=== PATIENT | female | born 1970 | race Caucasian/White ===

== ENCOUNTER 2020-10-05 18:39 | Emergency (ER) | payer OTHER ==
[~2020-10-05] VITALS: Ht 167.6 cm; Wt 85.3 kg
[2020-10-05] MEDS ORDERED: CYCLOBENZAPRINE 10 MG TABLET PO ONE (19:00)
[2020-10-05] MEDS ORDERED: ACETAMINOPHEN 325 MG TABLET PO ONE (19:00)
[2020-10-05] MEDS ORDERED: CYCLOBENZAPRINE 10 MG TABLET ONE (19:05)
[2020-10-05] MEDS ORDERED: ACETAMINOPHEN ES 500 MG TABLET ONE (19:05)
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
--- NOTE | 2020-10-05 19:19 | NUR ---
pain meds given as ordered
[2020-10-05] MEDS ORDERED: CYCL5TAB PO (19:40)
[2020-10-05] MEDS ORDERED: IBUP-1957 PO (19:40)
--- NOTE | 2020-10-05 19:55 | NUR ---
Patient discharged to home in stable condition. Written and verbal after care instructions given. Patient verbalizes understanding of instruction. DC with her , explaine the effects of medication RICE - rest, ice, compression, & elevation
[2020-10-05 19:57] VITALS: BP 144/84
== END 2020-10-05 19:57 | disposition home or self-care (01) ==
LOC: ER 18:44
DX: S13.4XXA Sprain of ligaments of cervical spine, initial encounter (principal); V49.49XA Driver injured in collision with other motor vehicles in traffic accident, initial encounter; Y93.89 Activity, other specified; Y92.413 State road as the place of occurrence of the external cause; Y99.8 Other external cause status
CPT/HCPCS: 70450-TC; 72125-TC